=== PATIENT | male | born 1970 | race African-American/Black ===

== ENCOUNTER 2021-06-09 11:29 | Emergency (ER) | payer OTHER ==
[~2021-06-09] VITALS: Ht 175.3 cm; Wt 94.8 kg
[~2021-06-09 11:29] MED LIST: APAP500 PO; IBUPROFEN 800800 M1 PO; LEVEMIR SUBQ; METFORMIN HCL500 MG PO; NOHOMEMEDICATIONS; NORCO 5-325 TA1 EACH PO; NORFLEX100 MG PO; NOVOLOG100 UNIT/1 SUBQ
[2021-06-09] MEDS ORDERED: AZITHROMYCIN500 MG PO (13:55)
[2021-06-09 14:52] VITALS: BP 111/72
== END 2021-06-09 15:02 | disposition home or self-care (01) ==
LOC: ER 11:29
DX: R05 Cough (principal); I10 Essential (primary) hypertension; R53.83 Other fatigue; E78.00 Pure hypercholesterolemia, unspecified; E11.65 Type 2 diabetes mellitus with hyperglycemia; Z20.822 Contact with and (suspected) exposure to COVID-19